=== PATIENT | male | born 1990 | race Caucasian/White ===

== ENCOUNTER 2017-06-08 17:37 | Inpatient (IN) | payer OTHER ==
[~2017-06-08] VITALS: Ht 170.2 cm; Wt 90.7 kg
--- NOTE | ~2017-06-08 | PN ---
Unit #: [id number] #: [id number] Patient: JUICE RUGGIERO [id number] [facility] [address] [place] [address] [id number] MR#: [id number] NAME: JUICE RUGGIERO ROOM: P258 Age: 26 Sex: M Admission Date: 06/08/2017 : 1990 Attending Physician: Reyes Corbett M.D. Admitting Physician: Reyes Corbett M.D. Primary Care Physician: Primary Care Physician Ashley BLANCO PROGRESS NOTES DATE 06/10/2017 DISCUSSION Mr. Ruggiero is a 26-year-old white male who was seen today and chart was reviewed and case was discussed with the staff. He has been anxious, withdrawn and seclusive to himself. Meanwhile, he has been cooperative with treatment recommendations and has been taking medications and tolerating them fairly well with no reported side effects. MENTAL STATUS EXAMINATION Young white male who was casually dressed with fair personal hygiene and appears to be in no acute distress or discomfort. He was awake and alert with intact orientation. His mood was anxious with congruent affect. His speech is slow and goal-directed. He denies any suicidal or homicidal ideations. His insight and judgement remains slightly impaired. TREATMENT PLAN 1. Will continue his current medications and treatment protocol. Will monitor his response to the medications and make further adjustments as needed. 2. Will continue to follow up. Dictated by... Reyes Corbett M.D. IAA/cordell TD: 06/10/2017 20:53 JOB #: [id number] Unit #: [id number] #: [id number] Patient: JUICE RUGGIERO [facility] PROGRESS NOTES Page 1 of 1 X Reyes Corbett MD X PROGRESS NOTE
--- NOTE | ~2017-06-08 | PA ---
Unit #: [id number] #: [id number] Patient: JUICE RUGGIERO [id number] [facility] [address] [place] [address] [id number] I MR#: [id number] NAME: JUICE RUGGIERO ROOM: P258 Age: 26 Sex: M Admission Date: 06/08/2017 : 1990 Date of Assessment: 06/09/2017 Attending Physician: Reyes Corbett M.D. Admitting Physician: Reyes Corbett M.D. Primary Care Physician: Primary Care Physician No PSYCHIATRIC ASSESSMENT IDENTIFICATION DATA Mr. Ruggiero is a 26-year-old white male who is a resident of [place], [place], and was brought to the hospital accompanied by his . CHIEF COMPLAINT "I've been depressed." HISTORY OF PRESENT ILLNESS Mr. Ruggiero is a 26-year-old white male who was brought to the hospital by his , and upon presentation he stated that he has been depressed and in the last year he got Lexapro and recently got medication switched to Wellbutrin 3 weeks ago, and he has been feeling better and reports suicidal thoughts after switching medicines and had a plan to shoot himself in the head and thoughts subsided for a week, and then began feeling very anxious and manic and reports being unable to control emotions and with severe anger and uncontrollable crying and stated that he wanted to drive his car into a building to kill himself. The patient reports his has been a protective factor in preventing him from killing himself. His has been stating that the patient has been sleeping a lot and sometimes half the day, and his appetite has been fluctuating, and he has been having some uncontrollable crying for no reason, and she has never seen him do this before, and reports locking up the guns and having a plan to take them elsewhere. reports depressive symptoms have been increasing with thoughts of suicidal plan. The patient was seen to be in significant danger to self and as such recommendation for inpatient level of care for safety and stabilization was made, and the patient was stepped up to the inpatient unit. SUBSTANCE ABUSE HISTORY The patient reports history of alcohol, cannabis, and cocaine abuse, and more recently he reports that he has used cannabis in the last month. PAST PSYCHIATRIC HISTORY The patient has not had any prior inpatient or outpatient psychiatric treatment. Review of the medical records indicate currently he is not active in any treatment program. He is not seeing a psychiatrist and not taking any psychotropic medication. PAST MEDICAL HISTORY No acute or chronic medical illness. MEDICATION ALLERGIES No known medication allergies. Unit #: [id number] #: [id number] Patient: JUCIE RUGGIERO PERSONAL AND SOCIAL HISTORY A 26-year-old white male who reports that he is and employed and lives at home with his and has fairly decent social support system. MENTAL STATUS EXAMINATION Young white male who is casually dressed with fair personal hygiene. Appears to be in no acute distress or discomfort. He was awake and alert on interaction with intact orientation to time, place, and person. His mood is anxious and depressed with congruent affect. His speech is slow and restricted in content. His thought processes were disorganized with some looseness of associations and flight of ideas and suicidal ideations. His insight and judgment remain significantly impaired. DIAGNOSTIC IMPRESSION PSYCHIATRIC: Major depressive disorder, recurrent, moderate, without psychotic features. MEDICAL: None. STRESSORS: Moderate psychosocial stressors. TREATMENT PLAN 1. The patient has presented with history of mood disorder and has been decompensating. We will recommend inpatient hospitalization for safety and stabilization. We will start him back on his home medication. We will adjust the medications and monitor response. 2. Supportive therapy was provided to the patient. ESTIMATED LENGTH OF STAY 5 to 7 days. ABILITY TO HELP SELF Limited. WILLINGNESS TO HELP The patient appears to be willing to help self. STRENGTHS 1. Communicative. 2. Cooperative. PROBLEMS 1. Chronic dysphoric symptoms. 2. Poor social support system. DISCHARGE CRITERIA This will be contingent upon the patient's ability to show resolution of his depression and anxiety as well as his ability to stay safe to himself particularly after discharge from the hospital. Dictated by... Byo Jackson/anna TD: 06/09/2017 10:26 Unit #: [id number] #: [id number] Patient: JUICE RUGGIERO JOB #: [id number] PSYCHIATRIC ASSESSMENT Page 1 of 1 X Reyes Corbett MD X PSYCHIATRIC ASSESSMENT
--- NOTE | ~2017-06-08 | HP ---
Unit #: [id number] #: [id number] Patient: JUICE BURCH [id number] [place] [address] [id number] MR#: [id number] NAME: JUICE BURCH ROOM: P258 Age: 26 Sex: M Admission Date: 06/08/2017 : 1990 Attending Physician: Reyes Corbett M.D. Admitting Physician: Reyes Corbett M.D. Primary Care Physician: Primary Care Physician No HISTORY AND PHYSICAL HISTORY OF PRESENT ILLNESS Juice is a 26 year old admitted to [address] [place] [address] with depression and verbalizing wanting to hurt himself. PAST MEDICAL HISTORY Nothing significant. PAST SURGICAL HISTORY Nothing reported. ALLERGIES Mobic. SOCIAL HISTORY Smokes 1/2 pack per day. Drinks alcohol on occasion. Admits to using marijuana and cocaine frequently. FAMILY HISTORY Medically noncontributory. REVIEW OF SYSTEMS CONSTITUTIONAL: No fever or chills. HEENT: Denies any sore throat, ear pain or runny nose. CARDIOVASCULAR: Denies chest pain, irregular heart rhythm or palpitations. CHEST: Denies shortness of breath or cough. No hemoptysis. GASTROINTESTINAL: Denies nausea, vomiting, diarrhea or chronic constipation. ENDOCRINE: Denies history of increased thirst or urination. No recent significant weight loss or gain. GENITOURINARY: Denies dysuria, frequency, or hematuria. SKIN: Denies any rashes. HEMATOLOGIC: Denies history of increased bleeding or bruising. MUSCULOSKELETAL: Denies any hot, swollen joints. No generalized muscle pain. NEUROLOGIC: Denies problems with vision or speech. No frequent, severe headaches. No numbness, tingling or weakness in any extremities. Denies loss of bladder or bowel control. CURRENT MEDICATIONS 1. Abilify 5 mg q.h.s. 2. Wellbutrin 150 mg daily. 3. Milk of Magnesia p.r.n. 4. Maalox p.r.n. Unit #: [id number] #: [id number] Patient: JUICE BURCH 5. Tylenol p.r.n. PHYSICAL EXAMINATION GENERAL: Alert, well-nourished, in no apparent distress. VITAL SIGNS: Blood pressure 130/88, heart rate 100, respirations 16, temperature 98.6. WEIGHT: 200. HEIGHT: 5 feet 7 inches. SKIN: Warm and dry without rash or lesion. HEENT: Normocephalic. TMs not viewed. Oral and nasal passages clear. Conjunctivae clear. PERRLA. EOMs intact. NECK: Supple without lymphadenopathy or thyromegaly. HEART: Regular rate and rhythm without murmur. LUNGS: Clear. ABDOMEN: Soft, nontender. : Not done. EXTREMITIES: No evidence of cyanosis, clubbing or edema. Moves all without focal deficit. NEUROLOGICAL: Grossly within normal limits. Cranial Nerves: II: Visual pedro are intact. III, IV AND : Extraocular movements are intact. Pupils are equal, round and reactive to light. V: Facial sensation is grossly normal. VII: Facial movements and expression are normal. VIII: Auditory acuity grossly intact. IX, X: Uvula is midline. Phonation is normal. XI: Patient shrugs shoulders and turns head normally. XII: Tongue protrudes in the midline. Sensory and Motor Function: Sensory and motor sensation is grossly normal. Motor: moves all extremities well. Coordination: Gait is normal. Deep Tendon Reflexes: Intact. IMPRESSION Psychiatric admission. RECOMMENDATIONS PSYCHIATRIC: Per psychiatrist. MEDICAL: See no contraindication to participate in facility's activities. MEDICAL PROGNOSIS Good. MEDICAL CONDITION Stable. Dictated by... Bill WolfeAMireya. for Boy Ventura/cordell TD: 06/09/2017 16:39 JOB #: [id number] Unit #: [id number] #: [id number] Patient: JUICE BURCH HISTORY AND PHYSICAL Page 1 of 1 X Fatou Cohen HISTORY AND PHYSICAL
--- NOTE | ~2017-06-08 | DS ---
Unit #: [id number] #: [id number] Patient: [facility]ERO [id number] [facility] [address] [place] [address] [id number] MR#: [id number] NAME: JUICE RUGGIERO ROOM: [facility] Age: 27 Sex: M Admission Date: 06/08/2017 : 1990 Discharge Date: 06/11/2017 Attending Physician: Reyes Corbett M.D. Primary Care Physician: Primary Care Physician No DISCHARGE SUMMARY IDENTIFYING DATA Mr. Ruggiero is a 26-year-old white male, who is a resident of [place], [place], and was brought to the hospital by his . DISCHARGE DIAGNOSES Psychiatric: Major depressive disorder, recurrent, moderate, without psychotic features. Medical: None. Stressors: Moderate psychosocial stressors. HISTORY OF PRESENT ILLNESS Please see initial psychiatric evaluation for details. PAST PSYCHIATRIC HISTORY Please see initial psychiatric evaluation for details. PAST MEDICAL HISTORY Please see initial psychiatric evaluation for details. HOSPITAL COURSE The patient was admitted to the adult psychiatric unit at [facility] jannet Vidal and was oriented to the hospital environment. Routine p.r.n. medications were initiated. Wellbutrin is maintained, Abilify 5 mg at bedtime was added as an augmenting agent. He was closely monitored. He was taking medications regularly, tolerating them fairly well, and was able to show a decent therapeutic response with improvement in depression and anxiety and was willing to continue treatment on an outpatient basis. As such, it was decided that he will be discharged home and will continue treatment on an outpatient basis. DISCHARGE MEDICATIONS Wellbutrin XL 150 mg in the morning for depression, Abilify 5 mg at bedtime for depression. DISCHARGE CONDITION Stable. PROGNOSIS Fair. Dictated by... Reyes Corbett M.D. Unit #: [id number] #: [id number] Patient: JUICE RUGGIERO IAA/modl TD: 06/14/2017 01:40 JOB #: [id number] DISCHARGE SUMMARY Page 1 of 1 X Reyes Corbett MD DISCHARGE SUMMARY
[2017-06-09 09:53] LABS: BASOPHIL% 0.4 % (0-2.5); EOSINOPHIL# 0.1 X10e3 (0-0.7); EOSINOPHIL% 1.1 % (0.0-7.0); HEMATOCRIT 49.5 % (38.0-50.0); HEMOGLOBIN 16.9 gm/dL (13.0-16.0); LYMPHOCYTE# 2.8 X10e3 (1.0-3.5); LYMPHOCYTE% 27.2 % (17.0-45.0); MEAN CELL VOLUME 85.3 FL (83-96); MEAN CORPUSCULAR HEMOGLOBIN 29.2 PG (28-34); MEAN CORPUSCULAR HGB CONC 34.2 g/dL (30-36); MEAN PLATELET VOLUME 9.1 FL (6.5-11.5); MONOCYTE# 0.7 X10e3 (0-1.0); MONOCYTE% 6.8 % (3.0-12.0); NEUTROPHIL# 6.6 X10e3 (1.5-7.1); NEUTROPHIL% 64.5 % (40-75); PLATELET COUNT 266 X10e3 (140-420); RED CELL DISTRIBUTION WIDTH 13.1 % (11.0-15.5); WHITE BLOOD COUNT 10.1 X10e3 (4.0-10.5)
[2017-06-09 10:08] LABS: ALBUMIN SERUM 4.6 g/dL (3.5-5.0); BUN/CREATININE RATIO 10.9; CALCIUM SERUM 9.6 mg/dL (8.4-10.2); CREATININE SERUM 1.1 mg/dL (0.6-1.4); DIFF IND NO; GLOM FILT RATE Estimated 91.5 mL/min (>60); POTASSIUM 4.4 mmol/L (3.5-5.1); PROTEIN TOTAL SERUM 7.7 g/dL (6.0-8.3)
[2017-06-10 10:12] LABS: URINE APPEARANCE CLOUDY; URINE BILIRUBIN NEG (NEG); URINE BLOOD NEG (NEG); URINE COLOR YELLOW; URINE GLUCOSE NORM (NORM); URINE KETONE NEG (NEG); URINE LEUKOCYTE ESTERASE NEG (NEG); URINE NITRATE NEG (NEG); URINE PROTEIN NEG (NEG); URINE UROBILINOGEN NORM (NORM)
[2017-06-10 10:33] LABS: AMPHETAMINE NEG (NEG); BARBITURATES NEG (NEG); BENZODIAZEPINES NEG (NEG); COCAINE NEG (NEG); MARIJUANA NEG (NEG); OPIATES NEG (NEG); TRICYCLIC ANTIDEPRESSANTS NEG (NEG); U METHADONE NEG (NEG)
== END 2017-06-11 11:55 | disposition home or self-care (01) | DRG 885 ==
LOC: P2L 20:26
PROVIDERS: Psychiatry & Neurology Psychiatry
DX: F33.1 Major depressive disorder, recurrent, moderate (principal); R45.851 Suicidal ideations; F41.9 Anxiety disorder, unspecified; F17.210 Nicotine dependence, cigarettes, uncomplicated
CPT/HCPCS: 80053; 80307; 81003; 85025